=== PATIENT | female | born 1990 | race Caucasian/White ===

== ENCOUNTER → 2016-08-29 | Outpatient (CLI) | payer MEDICARE, OTHER, MEDICAID ==
[~2016-08-29] MED LIST: ARANESP0.1 MG/0.5 SQ; AURYXIA PO; AURYXIA1 GM PO; CALCIJEX I1 MCG/1 ML IV; CELLCEPT 250MG250 MG PO; CLARITIN 1010 MG/TAB PO; COREG 3.123.125 MG/T PO; FISH OIL1000 MG PO; LASIX 40MG TABL40 MG PO; LEVAQUIN 5500 MG/TA1 PO; NEPHROCAP PO; NORCO 325 MG-51 TAB PO; NORVASC 5MG5 MG/TAB PO; PREDNISONE 5MG5 MG PO; PRILOSEC 20MG20 MG PO; PROGRAF 1MG1 MG PO; RENVELA800 MG PO; SENSIPAR30 MG PO; ULTRAM 50MG TAB50 MG PO; VITAMIN D32000 I1 PO; XANAX .25M0.25 MG/TA PO; ZESTRIL 20MG TA20 MG PO; ZOCOR5 MG PO
[2016-08-29 12:22] LABS: BASO # 0.1 (0.0-0.2); BASO % 0.7 % (0.0-2.0); EOS # 0.2 (0.0-0.7); GRAN # 4.8 (1.4-6.5); GRAN % 64.4 % (42.2-75.2); LYMPH # 1.9 (1.2-3.4); LYMPH % 25.8 % (20.0-51.0); MEAN CELL VOLUME 99 fl (80.0-100.0); MEAN CORPUSCULAR HGB CONC 33 g/dl (33.0-37.0); MONO # 0.5 (0.1-0.6); MONO % 6.7 % (1.7-9.3); PLATELET COUNT 260 K/mm3 (130-400); RED BLOOD COUNT 3.49 M/mm3 (4.10-5.30); REDCELL DISTRIBUTION WIDTH-CV 13.8 % (11.5-14.5); WHITE BLOOD COUNT 7.4 K/mm3 (4.8-10.8)
[2016-08-29 12:26] LABS: HEMATOCRIT 34.4 % (37.0-47.0); HEMOGLOBIN 11.2 g/dl (12.5-16.0); MEAN CORPUSCULAR HEMOGLOBIN 32 pg (27.0-31.0)
[2016-08-29 12:36] LABS: ADJUSTED CALCIUM 10.6 mg/dL (8.4-10.2); ALBUMIN 4.8 gm/dL (3.5-5.0); BILIRUBIN,TOTAL 0.8 mg/dL (0.0-1.0); CALCIUM 11.2 mg/dL (8.4-10.2); POTASSIUM 5.4 mmol/L (3.4-5.0); TOTAL PROTEIN 8.3 gm/dL (6.4-8.2)
[2016-08-29 12:52] LABS: INR 1.1 (0.8-3.0); PROTHROMBIN TIME 12.7 SECONDS (9.7-12.8)
[2016-08-29 12:55] LABS: PARTIAL THROMBOPLASTIN TIME 31.5 SECONDS (26.0-37.0)
[2016-08-29 13:42] LABS: CREATININE, serum 11.36 mg/dL (0.52-1.25)
[2016-08-29 14:07] LABS: HIV 1/2 Antibodies Non-Reactive; HIV-1p24 Antigen Non-Reactive
[2016-08-30 21:59] LABS: HEPATITIS B CORE AB,TOTAL Negative (()); HEPATITIS B SURFACE AB-QL Positive (())
[2016-09-01 13:48] LABS: SYPHILIS AB IGG Negative (Negative)
[2016-09-10 15:54] LABS: HSV 6 IGG 1:10 (()); HSV 6 IGM <1:20 (()); HSV 6 INTERPRETATION PAST INFECTION (())
== END ==
LOC: COL.LAB 08:55
DX: Z01.812 Encounter for preprocedural laboratory examination (principal); N18.6 End stage renal disease; Z94.0 Kidney transplant status; R93.8 Abnormal findings on diagnostic imaging of other specified body structures; Z79.01 Long term (current) use of anticoagulants; Z11.4 Encounter for screening for human immunodeficiency virus [HIV]; Z12.89 Encounter for screening for malignant neoplasm of other sites; E11.29 Type 2 diabetes mellitus with other diabetic kidney complication; D64.89 Other specified anemias
CPT/HCPCS: 86780; 87522

== ENCOUNTER → 2016-09-12 | Outpatient (CLI) | payer MEDICARE, OTHER, MEDICAID ==
[2016-10-16 15:03] LABS: BENZODIAZEPINE SCREEN BLOOD Not Detected (()); DRUG SCREEN BLD - ALCOHOL None Detected (()); SALICYLATE SCREEN BLOOD Not Detected (()); TRICYCLIC SCREEN BLOOD Not Detected (())
== END ==
LOC: COL.LAB 14:09
DX: Z53.9 Procedure and treatment not carried out, unspecified reason (principal)

== ENCOUNTER → 2016-12-19 | Outpatient (CLI) | payer MEDICARE, OTHER, MEDICAID ==
[2016-12-20 10:10] LABS: EBV CAPSID IGG QUANTITATIVE 63.5 U/mL (<9.0); EBV EARLY ANTIGEN IGG Negative (()); EBV IGM AB Negative (()); EPSTEIN-BARR VIRUS VCA-IgG Positive (())
== END ==
LOC: COL.LAB 14:36
DX: Z01.812 Encounter for preprocedural laboratory examination (principal); N18.6 End stage renal disease

== ENCOUNTER → 2017-01-30 | Outpatient (CLI) | payer MEDICARE, OTHER, MEDICAID ==
[2017-01-30] VITALS (8 sets, daily range): BP systolic 104–135; BP diastolic 62–90; PULSE 78–88; TEMP 97.6–98
[~2017-01-30] VITALS: Ht 160.1 cm; Wt 102.5 kg
== END | disposition home or self-care (01) ==
LOC: COL.CAR 08:42
DX: T82.49XA Other complication of vascular dialysis catheter, initial encounter (principal); N18.6 End stage renal disease; E78.00 Pure hypercholesterolemia, unspecified; K21.9 Gastro-esophageal reflux disease without esophagitis; D64.9 Anemia, unspecified; E66.9 Obesity, unspecified
CPT/HCPCS: C1751; C1769; J0690; J1644; J2250; J3010; J7120

== ENCOUNTER → 2017-02-22 | Outpatient (CLI) | payer MEDICARE, OTHER, MEDICAID | LOC: COL.RAD 14:27 | DX: R06.02 Shortness of breath (principal); Z95.828 Presence of other vascular implants and grafts ==

== ENCOUNTER → 2017-09-20 | Outpatient (CLI) | payer MEDICARE, OTHER, MEDICAID ==
[2017-09-20 16:58] LABS: ALBUMIN 4.6 gm/dL (3.5-5.0); BILIRUBIN,TOTAL 0.4 mg/dL (0.0-1.0); CALCIUM 10.6 mg/dL (8.4-10.2); PHOSPHOROUS 7.2 mg/dL (2.5-4.5); POTASSIUM 5.3 mmol/L (3.4-5.0); TOTAL PROTEIN 7.8 gm/dL (6.4-8.2)
[2017-09-20 17:05] LABS: BASO # 0.1 (0.0-0.2); BASO % 0.5 % (0.0-2.0); EOS # 0.4 (0.0-0.7); GRAN # 6.1 (1.4-6.5); GRAN % 63.9 % (42.2-75.2); LYMPH # 2.4 (1.2-3.4); LYMPH % 25.4 % (20.0-51.0); MEAN CELL VOLUME 101 fl (80.0-100.0); MEAN CORPUSCULAR HGB CONC 33 g/dl (33.0-37.0); MEAN PLATELET VOLUME 8.9 fl (7.4-10.4); MONO # 0.6 (0.1-0.6); MONO % 5.8 % (1.7-9.3); PLATELET COUNT 306 K/mm3 (130-400); RED BLOOD COUNT 2.92 M/mm3 (4.10-5.30)
[2017-09-20 17:07] LABS: HEMATOCRIT 29.4 % (37.0-47.0); HEMOGLOBIN 9.6 g/dl (12.5-16.0); MEAN CORPUSCULAR HEMOGLOBIN 33 pg (27.0-31.0)
[2017-09-20 17:12] LABS: INR 1.1 (0.8-3.0); PROTHROMBIN TIME 12.9 SECONDS (9.7-12.8)
[2017-09-20 17:15] LABS: HIV 1/2 Antibodies Non-Reactive; HIV-1p24 Antigen Non-Reactive
[2017-09-20 17:42] LABS: CREATININE, serum 8.88 mg/dL (0.52-1.25)
[2017-09-21 00:18] LABS: HEPATITIS B SURFACE ANTIBODY 16.7 (()); HEPATITIS B SURFACE ANTIGEN Negative (()); HEPATITIS C VIRUS ANTIBODY Negative (())
[2017-09-22 19:02] LABS: RPR (VDRL) Non-reactive (())
== END ==
LOC: COL.LAB 16:05
DX: Z01.818 Encounter for other preprocedural examination (principal); N18.6 End stage renal disease; Z99.2 Dependence on renal dialysis

== ENCOUNTER 2017-11-15 07:44 | Outpatient (CLI) | payer MEDICARE, OTHER, MEDICAID ==
[2017-11-15] VITALS (11 sets, daily range): BP systolic 107–130; BP diastolic 64–91; PULSE 69–91; TEMP 97.9
[~2017-11-15] VITALS: Ht 160 cm; Wt 100.0 kg
[2017-11-15] MEDS ORDERED: ZOLOFT 50MG50 MG PO (08:30)
[2017-11-15 08:54] LABS: INR 1.1 (0.8-3.0); PROTHROMBIN TIME 12.5 SECONDS (9.7-12.8)
[2017-11-15 11:59] LABS: MEAN CELL VOLUME 102 fl (80.0-100.0); MEAN CORPUSCULAR HGB CONC 33 g/dl (33.0-37.0); MEAN PLATELET VOLUME 8.1 fl (7.4-10.4); PLATELET COUNT 234 K/mm3 (130-400); RED BLOOD COUNT 3.17 M/mm3 (4.10-5.30)
[2017-11-15 12:01] LABS: HEMATOCRIT 32.2 % (37.0-47.0); HEMOGLOBIN 10.7 g/dl (12.5-16.0); MEAN CORPUSCULAR HEMOGLOBIN 34 pg (27.0-31.0)
[2017-11-15 12:07] LABS: INR 1.1 (0.8-3.0); PROTHROMBIN TIME 13.1 SECONDS (9.7-12.8)
[2017-11-15 12:12] LABS: ALBUMIN 3.8 gm/dL (3.5-5.0); PHOSPHOROUS 7.9 mg/dL (2.5-4.5); POTASSIUM 5.1 mmol/L (3.4-5.0)
[2017-11-15 12:13] LABS: CREATININE, serum 9.8 mg/dL (0.52-1.25)
== END 2017-11-15 14:52 | disposition home or self-care (01) ==
LOC: COL.CAR 07:44
PROVIDERS: Internal Medicine Nephrology
DX: N18.6 End stage renal disease (principal); Z53.8 Procedure and treatment not carried out for other reasons
CPT/HCPCS: J0690; J1644; J2250; J2270; J2704; J3010; Q9967

== ENCOUNTER 2018-12-16 09:00 | Outpatient (RCR) | payer MEDICARE, MEDICAID ==
[2018-12-08 08:36] LABS: HEMATOCRIT 38.3 % (37.0-47.0); HEMOGLOBIN 12.2 g/dl (12.5-16.0); MEAN CELL VOLUME 97 fl (80.0-100.0); MEAN CORPUSCULAR HEMOGLOBIN 31 pg (27.0-31.0); MEAN CORPUSCULAR HGB CONC 32 g/dl (33.0-37.0); MEAN PLATELET VOLUME 8.4 fl (7.4-10.4); PLATELET COUNT 457 K/mm3 (130-400); RED BLOOD COUNT 3.96 M/mm3 (4.10-5.30); REDCELL DISTRIBUTION WIDTH-CV 13.2 % (11.5-14.5)
[2018-12-08 08:52] LABS: BILIRUBIN,TOTAL 0.3 mg/dL (0.0-1.0); CALCIUM 11.1 mg/dL (8.4-10.2); CREATININE, serum 1.43 (0.52-1.25); POTASSIUM 4.6 mmol/L (3.4-5.0); TOTAL PROTEIN 7.4 gm/dL (6.4-8.2)
[2018-12-08 09:20] VITALS: BP 128/86; PULSE 97; TEMP 97.6
[2018-12-08 09:41] LABS: BAND 4 % (0-10); EOSINOPHIL 2 % (0-4); LYMPHOCYTE 14 % (20.0-51.0); MYELOCYTE 1 % (0-0); NEUTROPHILS 64 % (42.0-75.2)
[2018-12-08 09:43] LABS: PLATELET ESTIMATE INCREASED (NORMAL)
[~2018-12-16] VITALS: Ht 157.5 cm; Wt 116.7 kg
[~2018-12-16 09:00] MED LIST changes: +BIOTIN PO; +EPA FISH OIL1 SGL PO; +INVANZ INJ1 G/VIAL IV; +LIPITOR 10MG10 MG PO; +PREDNISONE1 MG PO; +PROCARDIA XL 3030 MG PO; +PROZAC40 MG PO; +SENSIPAR60 MG PO; +SEPTRA 400 MG-1 TAB PO; +SODIUM BICARBO650 MG PO; +VITAMIN D31000 I1 PO; -ZOCOR5 MG PO; +ZOLOFT 50MG50 MG PO; +[UNRECOGNIZED DRUG - OTHER] PO
--- NOTE | 2018-12-16 09:44 | NUR ---
Called pt to remind her of PICC drsg change , pt states " You guys [email or web address]'t take it out so I am going to [place] to have it taken out." Notified Kyleigh CONWAY.
== END 2018-12-16 09:50 | disposition home or self-care (01) ==
LOC: EUO 09:00
DX: Z79.899 Other long term (current) drug therapy (principal)